=== PATIENT | male | born 1995 | race Hispanic/Latino ===

== ENCOUNTER 2023-06-10 15:40 | Emergency (ER) | payer OTHER ==
[2023-06-10] MEDS ORDERED: HYDROcodone/Acetaminophen 5/325 mg Tablet ONE (16:18)
== END 2023-06-10 16:25 | disposition home or self-care (01) ==
LOC: CSHERS 15:40
DX: K08.89 Other specified disorders of teeth and supporting structures (principal); K02.9 Dental caries, unspecified
CPT/HCPCS: 99282

== ENCOUNTER 2023-11-07 13:40 | Emergency (ER) | payer OTHER ==
[2023-11-07] MEDS ORDERED: Acetaminophen 500 MG TAB ONE (15:16)
[2023-11-07] MEDS ORDERED: Ondansetron ODT 4 MG TAB ONE (15:17)
[2023-11-07 16:18] LABS: Influenza A by NAA Not Detected (NotDetected); Influenza B by NAA Not Detected (NotDetected); SARS-CoV-2 NAA Rapid Test DETECTED (NotDetected)
== END 2023-11-07 16:45 | disposition home or self-care (01) ==
LOC: CSHERS 13:40
DX: U07.1 COVID-19 (principal); F17.290 Nicotine dependence, other tobacco product, uncomplicated
CPT/HCPCS: 99283; Q0162

== ENCOUNTER 2023-11-11 17:18 | Emergency (ER) | payer OTHER ==
[2023-11-11] MEDS ORDERED: Ventolin HFA Inhaler 60 PUFF INHALER ONE (17:49)
== END 2023-11-11 18:41 | disposition home or self-care (01) ==
LOC: CSHERS 17:18
DX: U07.1 COVID-19 (principal); F17.290 Nicotine dependence, other tobacco product, uncomplicated; Z55.6 Problems related to health literacy
CPT/HCPCS: 71045; 94664; 94760

== ENCOUNTER 2025-01-05 11:04 | Emergency (ER) | payer OTHER, SELFPAY ==
[2025-01-05] MEDS ORDERED: predniSONE 20 MG TAB ONE (12:21)
[2025-01-05] MEDS ORDERED: Amoxicillin/Potassium Clav 875 MG TAB ONE (12:22)
[2025-01-05] MEDS ORDERED: Ventolin HFA Inhaler 60 PUFF INHALER ONE (12:22)
== END 2025-01-05 13:34 | disposition home or self-care (01) ==
LOC: CSHERS 11:04
DX: U07.1 COVID-19 (principal); H66.93 Otitis media, unspecified, bilateral; J01.90 Acute sinusitis, unspecified; B96.89 Other specified bacterial agents as the cause of diseases classified elsewhere; F17.290 Nicotine dependence, other tobacco product, uncomplicated
CPT/HCPCS: 71045; 87428; J7512